=== PATIENT | female | born 1960 | race Caucasian/White ===

== ENCOUNTER 2024-09-21 06:00 | Day surgery (SDC) | payer MEDICARE, OTHER ==
[~2024-09-21 06:00] MED LIST: Morphine 8 MG, EPINEPHrine 0.3 MG, Cefuroxime 750 MG, Ketorolac 30 MG, Sodium Chloride ... PRN; Sodium Chloride 0.9% 10 ML Syringe FLUSH PRN; Sodium Chloride 0.9% 10 ML Syringe FLUSH SCH
[2024-09-21] MEDS ORDERED: Midazolam 1 MG/ML 2 ML SDV ONE (06:29)
[2024-09-21] MEDS ORDERED: Lidocaine 1% 2 ML ONE (06:29)
[2024-09-21] MEDS ORDERED: propofoL 500 MG/50 ML 50 ML ONE (06:29)
[2024-09-21] MEDS: Lactated Ringers 1,000 ML IV SCH (06:30)
[2024-09-21] MEDS: oxyCODONE ER 10 MG TAB.ER PO ONE (06:36)
[2024-09-21] MEDS ORDERED: fentaNYL 100 MCG/2 ML SDV IVPUSH PRN (06:39)
[2024-09-21] MEDS ORDERED: Ondansetron 4 MG/2 ML SDV IVPUSH PRN (06:39)
[2024-09-21 07:03] LABS: INR 0.97
[2024-09-21] MEDS ORDERED: Phenylephrine 1% 10 MG/ML SDV ONE (07:33)
[2024-09-21] MEDS ORDERED: Lactated Ringers 1,000 ML ONE (07:34)
[2024-09-21] MEDS ORDERED: Ondansetron 4 MG/2 ML SDV ONE (08:18)
[2024-09-21] MEDS ORDERED: Propofol 200 MG/20 ML SDV ONE (08:19)
== END 2024-09-21 14:38 | disposition home or self-care (01) ==
LOC: JD.SDS 06:00
PROVIDERS: ATTEND Orthopaedic Surgery
DX: M16.11 Unilateral primary osteoarthritis, right hip (principal); E11.22 Type 2 diabetes mellitus with diabetic chronic kidney disease; N18.31 Chronic kidney disease, stage 3a; E66.09 Other obesity due to excess calories; Z79.4 Long term (current) use of insulin; Z79.01 Long term (current) use of anticoagulants; Z79.84 Long term (current) use of oral hypoglycemic drugs; Z79.82 Long term (current) use of aspirin; Z79.899 Other long term (current) drug therapy; Z87.891 Personal history of nicotine dependence
CPT/HCPCS: 0055T; 27130; 36415; 73501; 82947; 85610; 97116; 97161; 97530; A9270; C1713; C1776; J0690; J2003; J2250; J2371; J2405; J2704; J3373; J7120; 01214